=== PATIENT | female | born 1955 | race Caucasian/White ===

== ENCOUNTER → 2018-02-21 12:48 | Outpatient (CLI) | payer SELFPAY | PROVIDERS: Family Provider Internal Medicine; PCP Internal Medicine; Referring Provider Surgery; Visit Provider Surgery | DX: Z53.9 Procedure and treatment not carried out, unspecified reason (principal) ==

== ENCOUNTER → 2018-12-03 09:31 | Outpatient (CLI) | payer OTHER, SELFPAY ==
--- NOTE | 2018-12-03 10:10 | RAD_ITS ---
PROCEDURE: FLUOROSCOPIC GUIDED HIP INJECTION DATE: 12/03/2018 CLINICAL INDICATION: Pain in right hip. PHYSICIAN: Dr. Hollis Forde M.D. MEDICATIONS: 80 mg of Kenalog, 3 cc marcaine 2.5%, and 2 cc of 2% lidocaine administered intra-articularly, with a small amount of 2% lidocaine administered subcutaneously for local anesthesia for right hip approach. ACCESS SITE: Right hip. NEEDLE: 22-gauge spinal needle. FLUOROSCOPY TIME (if supplied): (0:11) minutes/seconds FINDINGS: The risks, benefits, and alternatives to the procedure were explained to the patient. The specific risks of bleeding, infection, and neurovascular injury were detailed and accepted. Witnessed informed consent was obtained. The needle was positioned under direct fluoroscopic observation. Approximately 0.5 cc of Omnipaque 300 instilled for localization purposes, to confirm intra-articular placement of the needle tip. Medication was then injected. The patient tolerated the procedure very well without any immediate complications. RAD/Inj/Asp Lucio Jt Should/Hip/Knee IMPRESSION: 1. Successful fluoroscopic guided right hip injection for pain control. Electronically Signed: Hollis Forde MD at 14:34 EDT Tel [phone], Service support ,
== END ==
PROVIDERS: Family Provider Internal Medicine; PCP Internal Medicine; Referring Provider Orthopaedic Surgery; Visit Provider Orthopaedic Surgery
DX: M16.11 Unilateral primary osteoarthritis, right hip (principal); M25.551 Pain in right hip; G89.29 Other chronic pain
CPT/HCPCS: 20610; 77002; Q9967

== ENCOUNTER 2022-04-26 18:45 | Emergency (ER) | payer MEDICARE, SELFPAY ==
[2022-04-26 18:46] VITALS: BP 163/99; PULSE 69; RESP 15; TEMP 36.8; O2SAT 98; BMI 36.3
--- NOTE | 2022-04-26 19:12 | EDS_ITS ---
HPI History of Present Illness Chief Complaint: Nosebleed Narrative Narrative: Patient presents with right-sided epistaxis that started just prior to arrival. It was quite brisk. She is not anticoagulated. She has no other symptoms. She does not feel lightheaded. [facility] Medical History Arthritis Hypertension Home Medications budesonide-formoterol HFA 80 mcg-4.5 mcg/actuation aerosol inhaler (Symbicort) 2 puff inhalation BID PRN Allergies 01/30/18 [History Last Taken Unknown] estradiol 0.5 mg tablet 1 mg PO QODAY 01/30/18 [History Last Taken Unknown] hydrocodone-acetaminophen 5-325mg 5mg-325mg ([place]) 1 ea PO Q4H PRN Pain 01/30/18 [History Last Taken Unknown] levothyroxine 125 mcg tablet 125 mcg PO DAILY 01/30/18 [History Last Taken Unknown] losartan 50 mg tablet (Cozaar) 50 mg PO DAILY 01/30/18 [History Last Taken Unknown] omeprazole 20 mg capsule,delayed release 20 mg PO DAILY 01/30/18 [History Last Taken Unknown] sertraline 50 mg tablet (Zoloft) 50 mg PO DAILY 01/30/18 [History Last Taken Unknown] clindamycin HCl 150 mg capsule 150 mg PO TID #15 caps 04/26/22 [Rx Last Taken Un known] Allergy/AdvReac Type Severity Reaction Status Date / Time latex Allergy Rash Verified 04/26/22 18:56 codeine AdvReac Nausea Verified 04/26/22 18:56 Surgical History History of appendectomy History of hip replacement Hx of cholecystectomy Hx of total hysterectomy Social History Smoking Status: Never smoker ROS ROS ED ROS Narrative Past medical history: Reviewed Medications: Reviewed, she is not anticoagulated. Social history: Noncontributory Review of systems: All systems negative except as indicated General: No fever Eyes: No visual changes ENT: Epistaxis as in HPI Neck: No neck pain Cardiovascular: No palpitations Psych: No recent behavioral changes Hematologic: No easy bleeding or easy bruising EXAM Physical Exam Narrative Exam Narrative: Physical exam General: Well nourished, Well developed, No Acute Distress Head: Normocephalic, Atraumatic Eyes: Conjunctiva not pale ENT: Right anterior epistaxis that is quite brisk. Neck: Supple, Nontender, No lymphadenopathy Cardiovascular: Regular rate, Regular rhythm Skin: Normal color, No rash Neuro: No facial droop Const Vital Signs: 04/26/22 18:46 Temperature 98.2 F Temperature Source Temporal Pulse Rate 69 Respiratory Rate 15 Blood Pressure 163/99 H Blood Pressure Mean 120 Pulse Ox 98 Oxygen Delivery Method Room Air MDM MDM MDM Narrative Medical decision making narrative: Patient has right-sided epistaxis. She was packed and she appeared well. I thought about coagulation profile labs however I discussed with her she is not anticoagulated, she has no prior bleeding diathesis and she does not bleed easily. Otherwise she can follow-up with ear nose and throat. I will start her on antibiotics to prevent infection. Procedures Other Procedures Procedure(s): Epistaxis management Verbal consent obtained. I did try to use a silver nitrate to cauterize however the bleeding continued and it was quite brisk. It was clear at that time that the patient will need nasal packing. I used a Rhino Rocket and inflated balloon about 6 mL. Hemostasis was achieved. Patient tolerated procedure well. Discharge Plan Triage Chief Complaint: Nosebleed ED Provider: Carlo Childress Dx/Rx/DC Orders Clinical Impression: Epistaxis, Nasal pain Instructions: ED Epistaxis (Adult) Prescriptions: New clindamycin HCl 150 mg capsule 150 mg PO TID Qty: 15 0RF No Action losartan [Cozaar] 50 MG tablet 50 mg PO DAILY hydrocodone-acetaminophen [[place]] 1 EACH tablet 1 ea PO Q4H PRN (Reason: Pain) levothyroxine 125 MCG tablet 125 mcg PO DAILY omeprazole 20 MG capsule 20 mg PO DAILY estradiol 0.5 MG tablet 1 mg PO QODAY sertraline [Zoloft] 50 MG tablet 50 mg PO DAILY budesonide-formoterol [Symbicort] 1 INHALER inhaler 2 puff inhalation BID PRN (Reason: Allergies) Primary Care Provider: Sayda Maxwell Referrals: Adán Macedo MD [Med Staff - Active Staff] - 3-5 Days Sayda Maxwell MD [Primary Care Provider] - Disposition Disposition: Home, Self Care
[2022-04-26 19:22] VITALS: RESP 18
[2022-04-26] MEDS: Silver Nitrate (BKC) 1 EACH TOPICAL (19:24)
== END 2022-04-26 19:31 | disposition home or self-care (01) ==
LOC: ED 19:19
PROVIDERS: Emergency Provider Emergency Medicine; PCP Internal Medicine; Visit Provider Emergency Medicine
DX: R04.0 Epistaxis (principal); I10 Essential (primary) hypertension
CPT/HCPCS: 30901; 99282

== ENCOUNTER 2022-04-27 07:22 | Emergency (ER) | payer MEDICARE, SELFPAY ==
[2022-04-27 07:23] VITALS: BP 176/92; PULSE 90; RESP 17; TEMP 35.9; O2SAT 97; BMI 36.8
--- NOTE | 2022-04-27 08:20 | EDS_ITS ---
HPI History of Present Illness Chief Complaint: Nosebleed Informant: patient Onset/Context/Timing Onset: Yesterday Context: Sudden Onset Timing: Continuous Quality: Dark blood Location: Left nares Worsened by: Nothing Relieved by: Nothing Narrative Narrative: Presents with epistaxis that began yesterday. Patient was seen here at that time. Patient had her right nares packed with a rapid Rhino. Patient states that this morning she woke up with and she was having bleeding from her left nares. Patient states it was dark blood. Patient states nothing makes it better nothing makes it worse. Patient admits to some bilateral ear pain as well. Patient also admits to a headache. Patient denies any history of bleeding disorders. Patient is not on any anticoagulants. [facility] Medical History Arthritis Hypertension Home Medications budesonide-formoterol HFA 80 mcg-4.5 mcg/actuation aerosol inhaler (Symbicort) 2 puff inhalation BID PRN Allergies 01/30/18 [History Last Taken Unknown] estradiol 0.5 mg tablet 1 mg PO QODAY 01/30/18 [History Last Taken Unknown] hydrocodone-acetaminophen 5-325mg 5mg-325mg ([place]) 1 ea PO Q4H PRN Pain 01/30/18 [History Last Taken Unknown] levothyroxine 125 mcg tablet 125 mcg PO DAILY 01/30/18 [History Last Taken Unknown] losartan 50 mg tablet (Cozaar) 50 mg PO DAILY 01/30/18 [History Last Taken Unknown] omeprazole 20 mg capsule,delayed release 20 mg PO DAILY 01/30/18 [History Last Taken Unknown] sertraline 50 mg tablet (Zoloft) 50 mg PO DAILY 01/30/18 [History Last Taken Unknown] clindamycin HCl 150 mg capsule 150 mg PO TID #15 caps 04/26/22 [Rx Last Taken Unknown] Allergy/AdvReac Type Severity Reaction Status Date / Time latex Allergy Rash Verified 04/27/22 07:23 codeine AdvReac Nausea Verified 04/27/22 07:23 Surgical History History of appendectomy History of hip replacement Hx of cholecystectomy Hx of total hysterectomy Social History Smoking Status: Never smoker ROS ROS ED Constitutional Constitutional ED: Denies chills or fever(s) Eyes Eyes: Reports blurry vision; Denies change in vision ENT ENT ED: Reports ear pain bilateral; Denies rhinorrhea or sore throat Cardiovascular Cardiovascular: Denies chest pain or palpitations Respiratory/Chest Respiratory/Chest: Denies cough or dyspnea Gastrointestinal Gastrointestinal: Denies nausea or vomiting Genitourinary Genitourinary ED: Denies dysuria or hematuria Musculoskeletal Musculoskeletal: Reports back pain; Denies neck pain Integumentary Denies abscess or rash Neurologic Neurologic: Reports headache(s); Denies weakness Allergic/Immunologic Allergic/Immunologic ED: Denies mouth swelling or urticaria EXAM Physical Exam Const Vital Signs: 04/27/22 07:23 Temperature 96.6 F L Temperature Source Temporal Pulse Rate 90 Respiratory Rate 17 Blood Pressure 176/92 H Blood Pressure Mean 120 Pulse Ox 97 Oxygen Delivery Method Room Air Positive well nourished, well developed and obese General Appearance ED: well developed and NAD Nutritional Appearance: obese HEENT Reports moist mucous membranes HEENT Narrative: There is nasal packing in the right nares. There is a clot in the left nares. There is some mild active bleeding around the clot. There is some mild bleeding in the posterior pharynx. Neck supple and no JVD Neuro oriented x3, CN's II-XII intact bilaterally and no sensory deficits noted Sensorium / Orientation: alert Motor Exam: strength 5/5 throughout Psych mental status grossly normal MDM MDM MDM Narrative Medical decision making narrative: The packing from the right nares was removed. There is brisk bleeding noted from the right nares. Sheila mixture was placed on cotton balls and was inserted into the nares bilaterally. There is only mild bleeding from the left nares. Rapid Rhino packing was applied to both nares. The balloons were inflated with approximately 5 cc of air on each side. Bleeding seemed to subside. CBC was obtained and was reviewed. Hemoglobin is stable at 13.5 and hematocrit is 42.6. Platelets are normal. PT with INR was obtained and was reviewed. These are within normal limits. PTT was within normal limits. Comprehensive metabolic profile was obtained and was reviewed. Glucose is mildly elevated at 151. Electrolytes are within normal limits. Anion gap is normal. Patient is resting comfortably on reevaluation. Patient is only having minor oozing on reevaluation. Patient feels comfortable going home. Patient was instructed to continue the antibiotics that were prescribed for her yesterday. Patient was instructed to follow-up with ENT in 2 to 3 days. Patient was instructed return if worse in any way. Patient understood and was agreeable with the plan. All questions were answered. Lab Data Attestation: I reviewed the patient's lab results. Labs: Laboratory Results - last 24 hr 04/27/22 04/27/22 04/27/22 08:55 08:55 08:55 WBC 6.8 RBC 4.64 Hgb 13.5 Hct 42.6 MCV 91.8 MCH 29.1 MCHC 31.7 L RDW Std Deviation 43.5 RDW Coeff of Wali 12.9 Plt Count 264 MPV 9.3 Immature Gran % (Auto) 0.300 Neut % (Auto) 70.1 H Lymph % (Auto) 22.8 Mcclain % (Auto) 4.2 Eos % (Auto) 2.0 Baso % (Auto) 0.6 Absolute Neuts (auto) 4.8 Absolute Lymphs (auto) 1.56 Nucleated RBC % 0 PT 13.0 INR 1.0 APTT 27.8 Sodium 140 Potassium 3.8 Chloride 108 H Carbon Dioxide 27.0 Anion Gap 5 BUN 17 Creatinine 0.69 Estim Creat Clear Calc 46.50 Est GFR (MDRD) Af Amer 109 Est GFR (MDRD) Non-Af 90 BUN/Creatinine Ratio 24.7 H Glucose 151 H Calcium 8.4 L Total Bilirubin 0.60 AST 14 L ALT 19 Alkaline Phosphatase 47 Total Protein 6.9 Albumin 3.2 Globulin 3.7 Albumin/Globulin Ratio 0.9 Discharge Plan Triage Chief Complaint: Nosebleed ED Provider: Boston Armendariz Dx/Rx/DC Orders Clinical Impression: Epistaxis, Nasal pain Instructions: ED Epistaxis (Adult) Prescriptions: No Action losartan [Cozaar] 50 MG tablet 50 mg PO DAILY hydrocodone-acetaminophen [[place]] 1 EACH tablet 1 ea PO Q4H PRN (Reason: Pain) levothyroxine 125 MCG tablet 125 mcg PO DAILY omeprazole 20 MG capsule 20 mg PO DAILY estradiol 0.5 MG tablet 1 mg PO QODAY sertraline [Zoloft] 50 MG tablet 50 mg PO DAILY budesonide-formoterol [Symbicort] 1 INHALER inhaler 2 puff inhalation BID PRN (Reason: Allergies) clindamycin HCl 150 mg capsule 150 mg PO TID Qty: 15 0RF Primary Care Provider: Sayda Maxwell Referrals: Adán Macedo MD [Med Staff - Active Staff] - 2 Days Sayda Maxwell MD [Primary Care Provider] - 3-5 Days Disposition Disposition: Home, Self Care
[2022-04-27 09:05] LABS: Absolute Lymphocyte Count 1.56 X10^3/uL (0.83-4.51); Absolute Neutrophil Count 4.8 X10^3/uL (2.0-7.7); Basophil# 0.04 X10^3/uL; Basophil% 0.6 % (0-1); Eosinophil# 0.14 X10^3/uL; Hematocrit 42.6 % (37-47); Hemoglobin 13.5 g/dL (12.0-15.0); Lymphocyte # 1.56 X10^3/ul (0.83-4.51); Lymphocyte % 22.8 % (19-41); Mean Corp Hgb Conc 31.7 g/dL (32-36); Mean Corpuscular Hgb 29.1 pg (27.0-32.0); Mean Corpuscular Volume 91.8 fL (81-99); Mean Platelet Vol. 9.3 fl (6.2-12.0); Monocyte# 0.29 X10^3/uL; Monocyte% 4.2 % (0-10); NRBC Flagged by Analyzer 0 % (0-5); Neutrophil # 4.79 X10^3/uL (2.7-7.7); Neutrophil % 70.1 % (47-70); Platelet Count 264 K/mm3 (150-450); RBC Distribution Width CV 12.9 % (11.6-14.6); RBC Distribution Width SD 43.5 fl (35.1-43.9); Red Blood Count 4.64 M/mm3 (4.2-5.4); White Blood Count 6.8 K/mm3 (4.4-11.0)
[2022-04-27 09:17] LABS: Partial Thromboplast Time 27.8 Seconds (24.1-36.2)
[2022-04-27 09:21] LABS: ALB/GLOB Ratio 0.9 RATIO (0.9-2.4); AST(SGOT) 14 U/L (15-37); Alanine Aminotransfer ALT/SGPT 19 U/L (13-56); Albumin, Serum 3.2 g/dL (3.2-5.0); Alkaline Phosphatase 47 U/L (45-117); Anion Gap 5 (5-15); BUN 17 mg/dL (7-18); BUN/Creat Ratio 24.7 RATIO (10-20); Calcium,Total 8.4 mg/dL (8.5-10.1); Chloride 108 mmol/L (98-107); Creatinine, Serum 0.69 mg/dL (0.55-1.02); EST Glomerular Filtration Rate 90 mL/min (>60); Est Glom Filt Rate - Afr Amer 109 mL/min (>60); Globulin 3.7 g/dL (2.2-4.2); Glucose 151 mg/dL (74-106); Potassium 3.8 mmol/L (3.5-5.1); Protein, Total 6.9 g/dL (6.4-8.2); Sodium Level 140 mmol/L (136-145)
[2022-04-27] MEDS: Mixture 30 ML Bottle TOPICAL (11:28)
[2022-04-27 11:30] VITALS: PULSE 63; RESP 18; O2SAT 97
== END 2022-04-27 11:33 | disposition home or self-care (01) ==
PROVIDERS: Emergency Provider Emergency Medicine; PCP Internal Medicine; Visit Provider Emergency Medicine
DX: R04.0 Epistaxis (principal); H92.03 Otalgia, bilateral; R51.9 Headache, unspecified; E66.9 Obesity, unspecified
CPT/HCPCS: 30905; 80053; 85025; 85610; 85730; 99283; A4216

== ENCOUNTER 2022-04-28 21:39 | Emergency (ER) | payer MEDICARE, SELFPAY ==
[2022-04-28 21:40] VITALS: BP 139/73; PULSE 108; RESP 18; TEMP 36.2; O2SAT 95; BMI 36.0
--- NOTE | 2022-04-28 23:06 | EX.ED.DYSGE1 ---
HPI History of Present Illness Chief Complaint: Nosebleed Narrative Narrative: Patient is a 66-year-old female with past medical history of hypertension and depression. She was seen the other day secondary to nosebleed and at that time had bilateral rapid Rhino was placed. Blood work was also obtained. She states she was doing well but this evening had a sudden onset breakthrough bleeding despite the packing being present. She denies any history of bleeding disorder or blood thinner use and she denies any trauma since returning home. She states she is doing better at this time but with the episode occurring she presents for reevaluation [facility] Medical History Arthritis Hypertension Home Medications budesonide-formoterol HFA 80 mcg-4.5 mcg/actuation aerosol inhaler (Symbicort) 2 puff inhalation BID PRN Allergies 01/30/18 [History Last Taken Unknown] estradiol 0.5 mg tablet 1 mg PO QODAY 01/30/18 [History Last Taken Unknown] hydrocodone-acetaminophen 5-325mg 5mg-325mg ([place]) 1 ea PO Q4H PRN Pain 01/30/18 [History Last Taken Unknown] levothyroxine 125 mcg tablet 125 mcg PO DAILY 01/30/18 [History Last Taken Unknown] losartan 50 mg tablet (Cozaar) 50 mg PO DAILY 01/30/18 [History Last Taken Unknown] omeprazole 20 mg capsule,delayed release 20 mg PO DAILY 01/30/18 [History Last Taken Unknown] sertraline 50 mg tablet (Zoloft) 50 mg PO DAILY 01/30/18 [History Last Taken Unknown] clindamycin HCl 150 mg capsule 150 mg PO TID #15 caps 04/26/22 [Rx Last Taken Unknown] Allergy/AdvReac Type Severity Reaction Status Date / Time latex Allergy Rash Verified 04/28/22 21:40 codeine AdvReac Nausea Verified 04/28/22 21:40 Surgical History History of appendectomy History of hip replacement Hx of cholecystectomy Hx of total hysterectomy Social History Smoking Status: Never smoker ROS ROS ED Constitutional Constitutional ED: Denies chills or fever(s) Eyes Eyes: Denies change in vision ENT ENT ED: Reports other Details: Positive nasal pain and nasal bleeding ; Denies sore throat Cardiovascular Cardiovascular: Denies chest pain Respiratory/Chest Respiratory/Chest: Denies cough or dyspnea Gastrointestinal Gastrointestinal: Denies abdominal pain, diarrhea, nausea or vomiting Genitourinary Genitourinary ED: Denies dysuria Musculoskeletal Musculoskeletal: Denies myalgias Integumentary Denies rash Neurologic Neurologic: Reports headache(s) Hematologic/Lymphatic Hematologic/Lymphatic: Denies easy bleeding or easy bruising EXAM Physical Exam Const Vital Signs: 04/28/22 21:40 Temperature 97.1 F L Temperature Source Temporal Pulse Rate 108 H Respiratory Rate 18 Blood Pressure 139/73 H Blood Pressure Mean 95 Pulse Ox 95 Oxygen Delivery Method Room Air Positive well nourished and well developed General Appearance ED: well developed HEENT HEENT Narrative: Patient has bilateral rapid Rhino is in place. There is no active bleeding from around the packing site. There is no dried blood or active bleeding noted in the posterior pharynx. Eyes PERRL and EOMs intact bilaterally Neck supple Resp normal respiratory effort and clear to auscultation bilaterally Cardio regular rate and regular rhythm Extremity normal to inspection Neuro oriented x3 and CN's II-XII intact bilaterally Sensorium / Orientation: alert Psych mental status grossly normal Skin no rashes or lesions noted MDM MDM MDM Narrative Medical decision making narrative: Patient presented to the ER with stable vitals and spontaneous resolution of the reported bleeding at home. At this time there is no bleeding from either nasal site and there is no blood in the posterior pharynx. Therefore do not feel is appropriate to remove the nasal packing. The patient had blood work done just yesterday and she is normal blood volume and platelet count and bleeding times I do not feel there is need to repeat this as well. Patient was watched in the ER for approximately 1 hour and there was no return of bleeding and therefore at this time she is safe for discharge and can follow-up with ENT as previously directed on Saturday. Discharge Plan Triage Chief Complaint: Nosebleed ED Provider: Keith Mujica Dx/Rx/DC Orders Clinical Impression: Epistaxis, Hypertension Instructions: ED Epistaxis (Adult) Prescriptions: No Action losartan [Cozaar] 50 MG tablet 50 mg PO DAILY hydrocodone-acetaminophen [[place]] 1 EACH tablet 1 ea PO Q4H PRN (Reason: Pain) levothyroxine 125 MCG tablet 125 mcg PO DAILY omeprazole 20 MG capsule 20 mg PO DAILY estradiol 0.5 MG tablet 1 mg PO QODAY sertraline [Zoloft] 50 MG tablet 50 mg PO DAILY budesonide-formoterol [Symbicort] 1 INHALER inhaler 2 puff inhalation BID PRN (Reason: Allergies) clindamycin HCl 150 mg capsule 150 mg PO TID Qty: 15 0RF Primary Care Provider: Sayda Maxwell Referrals: Corky Maecdo MD [Med Staff - Courtesy Staff] - Sayda Maxwell MD [Primary Care Provider] - Activity Restrictions/Additional Instructions: Please follow-up with ENT for repeat evaluation. If your nose begins to bleed again hold pressure for 10 to 20 minutes and if bleeding stops then you may stay at home but if it persists or you have further concerns return to the ER for repeat evaluation Disposition Disposition: Home, Self Care Discharge Date/Time: 04/28/22 23:16
== END 2022-04-28 23:16 | disposition home or self-care (01) ==
PROVIDERS: Emergency Provider Emergency Medicine; PCP Internal Medicine; Visit Provider Emergency Medicine
DX: R04.0 Epistaxis (principal); I10 Essential (primary) hypertension; F32.A Depression, unspecified; R51.9 Headache, unspecified
CPT/HCPCS: 99282

== ENCOUNTER 2022-05-15 09:47 | Emergency (ER) | payer MEDICARE, SELFPAY ==
[2022-05-15 09:48] VITALS: BP 139/69; PULSE 89; RESP 18; TEMP 36; O2SAT 96; BMI 35.2
[2022-05-15 10:01] VITALS: BP 147/102; PULSE 85; RESP 19; O2SAT 98
[2022-05-15 10:06] VITALS: BP 144/70
--- NOTE | 2022-05-15 10:10 | EKG12_ITS ---
Test Reason : HTN Blood Pressure : / mmHG Vent. Rate : 071 BPM Atrial Rate : 071 BPM P-R Int : 174 ms QRS Dur : 104 ms QT Int : 388 ms P-R-T Axes : 018 -09 023 degrees QTc Int : 421 ms Sinus rhythm with marked sinus arrhythmia Otherwise normal ECG Confirmed by ALICIA DETN, KENNETH ([id number]), newspaper copy editor YORDAN GONZALEZ ([id number]) on 05/17/2022 10:18:58 AM Referred By: MARCELINO Confirmed By:KENNETH VARGAS MD
--- NOTE | 2022-05-15 10:10 | CT_ITS ---
STUDY: CT BRAIN WITHOUT CONTRAST REASON FOR EXAM: Female, 66 years old. HTN, headache RADIATION DOSAGE (If Supplied By Facility): CTDIvol = ( 44.99 ) mGy, DLP = ( 829.85 ) mGycm TECHNIQUE: Transaxial CT imaging of the brain was performed without administration of intravenous contrast material. Individualized dose optimization techniques were used for this CT. COMPARISON: No relevant priors. FINDINGS: Normal soft tissue structures. There is hyperostosis frontalis internus. There is mild cerebral atrophy with widening of the extra-axial spaces and ventricular dilatation. Normal white matter tracts of the cerebral hemispheres. Normal basal ganglia and thalami. Normal brainstem. Normal cerebellum. There is no intracranial hemorrhage. There are no findings of an acute ischemic infarction. Mild degree of mucosal thickening of the right maxillary sinus. CT/Brain/Head without Contrast IMPRESSION: Chronic involutional changes of the brain. Electronically Signed: Zach Cedillo MD at 11:21 EST ,
--- NOTE | 2022-05-15 10:11 | EX.ED.DYSGE1 ---
HPI History of Present Illness Chief Complaint: Hypertension Informant: patient Onset/Context/Timing Onset: Weeks Narrative Narrative: Patient present secondary to hypertension with a syncopal episode yesterday. Patient has been seen multiple times recently with nosebleeds. She states there was concerned that high blood pressure may been causing her nosebleeds. When she spoke with her primary care physician they had her double her losartan from 50 mg to 100 mg daily. She has been having intermittent headaches. Yesterday at work she states she felt like a migraine was coming on. She had trouble with her vision focusing. She then became lightheaded and had a very brief syncopal or near syncopal episode. She denies having palpitations or chest pain prior to this. She states after arriving home from her syncopal episode she checked her blood pressure and it was reading 100/95. By late evening blood pressure had returned to more normal range in the 130s systolic. She woke at 2 AM this morning with a headache and her systolic blood pressure was 200. This morning she did take her Synthroid as well as 50 mg of losartan. After speaking with her primary care office it was advised she come to the emergency room for evaluation. She has a very mild headache at this time. She denies chest pain or palpitations. [facility] Medical History Arthritis Hypertension Home Medications budesonide-formoterol HFA 80 mcg-4.5 mcg/actuation aerosol inhaler (Symbicort) 2 puff inhalation BID PRN Allergies 01/30/18 [History Last Taken Unknown] estradiol 0.5 mg tablet 1 mg PO QODAY 01/30/18 [History Last Taken Unknown] hydrocodone-acetaminophen 5-325mg 5mg-325mg ([place]) 1 ea PO Q4H PRN Pain 01/30/18 [History Last Taken Unknown] levothyroxine 125 mcg tablet 125 mcg PO DAILY 01/30/18 [History Last Taken Unknown] losartan 50 mg tablet (Cozaar) 50 mg PO DAILY 01/30/18 [History Last Taken Unknown] omeprazole 20 mg capsule,delayed release 20 mg PO DAILY 01/30/18 [History Last Taken Unknown] sertraline 50 mg tablet (Zoloft) 50 mg PO DAILY 01/30/18 [History Last Taken Unknown] clindamycin HCl 150 mg capsule 150 mg PO TID #15 caps 04/26/22 [Rx Last Taken Unknown] Allergy/AdvReac Type Severity Reaction Status Date / Time latex Allergy Rash Verified 05/15/22 09:48 codeine AdvReac Nausea Verified 05/15/22 09:48 Surgical History History of appendectomy History of hip replacement Hx of cholecystectomy Hx of total hysterectomy Social History Smoking Status: Never smoker ROS ROS ED Constitutional Constitutional ED: Denies chills or fever(s) Eyes Eyes: Reports blurry vision; Denies change in vision or discharge from eye(s) ENT ENT ED: Denies discharge from eye(s), rhinorrhea or sore throat Cardiovascular Cardiovascular: Denies chest pain or palpitations Respiratory/Chest Respiratory/Chest: Denies cough or dyspnea Gastrointestinal Gastrointestinal: Denies abdominal pain, diarrhea, nausea or vomiting Genitourinary Genitourinary ED: Denies dysuria Musculoskeletal Musculoskeletal: Denies back pain or extremity pain Integumentary Denies Abrasions or rash Neurologic Neurologic: Reports headache(s); Denies weakness Psychiatric Psychiatric: Denies anxiety or depression Endocrine Endocrinology: Denies polydipsia or polyuria Allergic/Immunologic Allergic/Immunologic ED: Denies lip swelling or urticaria EXAM Physical Exam Const Vital Signs: 05/15/22 09:48 05/15/22 10:01 05/15/22 10:02 Temperature 96.8 F L Temperature Source Temporal Pulse Rate 89 85 Respiratory Rate 18 19 H Respiratory Effort Normal Non-Labored Respiratory Pattern Normal Blood Pressure 139/69 H 147/102 H Blood Pressure Mean 92 117 Pulse Ox 96 98 Oxygen Delivery Method Room Air Room Air 05/15/22 10:06 05/15/22 11:37 Temperature Temperature Source Pulse Rate 76 Respiratory Rate 9 L Respiratory Effort Respiratory Pattern Blood Pressure 144/70 H 145/79 H Blood Pressure Mean 94 101 Pulse Ox 97 Oxygen Delivery Method Room Air Positive well nourished and well developed General Appearance ED: well developed HEENT Reports normocephalic and head/scalp atraumatic Eyes PERRL and EOMs intact bilaterally Neck supple Chest Wall inspection of chest normal and palpation of chest normal Resp normal respiratory effort and clear to auscultation bilaterally Cardio regular rate and regular rhythm GI normal to inspection, nondistended, normoactive bowel sounds Palpation: soft Extremity normal to inspection Neuro oriented x3 and no sensory deficits noted Sensorium / Orientation: alert Motor Exam: strength 5/5 throughout Psych mental status grossly normal Skin no rashes or lesions noted MDM MDM MDM Narrative Medical decision making narrative: Given the patient's headaches and syncopal episode CT scan of the head is obtained. EKG is ordered along with lab work to evaluate for anemia or electrolyte derangement. Lab Data Attestation: I reviewed the patient's lab results. Labs: Laboratory Results - last 24 hr 05/15/22 05/15/22 10:25 10:25 WBC 8.1 RBC 4.55 Hgb 13.4 Hct 41.4 MCV 91.0 MCH 29.5 MCHC 32.4 RDW Std Deviation 45.1 H RDW Coeff of Wali 13.6 Plt Count 312 MPV 8.9 Immature Gran % (Auto) 0.500 Neut % (Auto) 65.9 Lymph % (Auto) 24.1 [place] % (Auto) 6.2 Eos % (Auto) 2.8 Baso % (Auto) 0.5 Absolute Neuts (auto) 5.3 Absolute Lymphs (auto) 1.95 Nucleated RBC % 0 Sodium 141 Potassium 4.2 Chloride 106 Carbon Dioxide 28.0 Anion Gap 7 BUN 23 H Creatinine 0.92 Estim Creat Clear Calc 50.54 Est GFR (MDRD) Af Amer 78 Est GFR (MDRD) Non-Af 64 BUN/Creatinine Ratio 24.9 H Glucose 101 Calcium 9.0 Radiography Chest X-Ray - ED: 1 View, Read by ED Physician, Normal, Heart, Lungs and Mediastinum Diagnostic Testing: Clinical Impression(s) from Imaging Studies Brain CT 05/15/22 10:10 IMPRESSION: Chronic involutional changes of the brain. Electronically Signed: Zach Cedillo MD at 11:21 EST , Chest X-Ray 05/15/22 10:45 IMPRESSION: No acute abnormality is seen. Electronically Signed: Zach Cedillo MD at 11:21 EST , EKG Initial EKG: Attestation: I personally reviewed and interpreted this EKG as follows: Interpretation: Sinus Rhythm (Sinus at 71 with no acute ischemia.) Treatment and Re-Evaluation Narrative: Repeat evaluation patient resting comfortably. Systolic blood pressure has been stable in the 130s to 140s while in the emergency room. EKG is unremarkable with no sign of ischemia. Chest x-ray per my interpretation reveals no acute abnormalities. Radiology interpretation is reviewed. CT scan of the head is unremarkable. Lab work including CBC and chemistry studies are unremarkable. Test results are discussed with the patient at bedside. I encouraged her to only take 50 mg of her losartan daily and check her blood pressure at random times throughout the day and keep a journal so that her physician can monitor this. I also encouraged her to have her blood pressure cuff checked against one at her doctor's office or the hospital to ensure that it is accurate. Return instructions are provided. Discharge Plan Triage Chief Complaint: Hypertension ED Provider: Twyla Mccarty Dx/Rx/DC Orders Clinical Impression: Labile blood pressure, Syncope Instructions: ED High Blood Pressure Hypertension, ED Fainting, Uncertain Cause Prescriptions: No Action losartan [Cozaar] 50 MG tablet 50 mg PO DAILY hydrocodone-acetaminophen [[place]] 1 EACH tablet 1 ea PO Q4H PRN (Reason: Pain) levothyroxine 125 MCG tablet 125 mcg PO DAILY omeprazole 20 MG capsule 20 mg PO DAILY estradiol 0.5 MG tablet 1 mg PO QODAY sertraline [Zoloft] 50 MG tablet 50 mg PO DAILY budesonide-formoterol [Symbicort] 1 INHALER inhaler 2 puff inhalation BID PRN (Reason: Allergies) clindamycin HCl 150 mg capsule 150 mg PO TID Qty: 15 0RF Primary Care Provider: Sayda Maxwell Referrals: Sayda Maxwell MD [Primary Care Provider] - [facility] appointment Disposition Disposition: Home, Self Care
[2022-05-15 10:33] LABS: Absolute Lymphocyte Count 1.95 X10^3/uL (0.83-4.51); Absolute Neutrophil Count 5.3 X10^3/uL (2.0-7.7); Basophil# 0.04 X10^3/uL; Basophil% 0.5 % (0-1); Eosinophil# 0.23 X10^3/uL; Eosinophils% 2.8 % (0-5); Hematocrit 41.4 % (37-47); Hemoglobin 13.4 g/dL (12.0-15.0); Lymphocyte # 1.95 X10^3/ul (0.83-4.51); Lymphocyte % 24.1 % (19-41); Mean Corp Hgb Conc 32.4 g/dL (32-36); Mean Corpuscular Hgb 29.5 pg (27.0-32.0); Mean Platelet Vol. 8.9 fl (6.2-12.0); Monocyte% 6.2 % (0-10); NRBC Flagged by Analyzer 0 % (0-5); Neutrophil # 5.34 X10^3/uL (2.7-7.7); Neutrophil % 65.9 % (47-70); Platelet Count 312 K/mm3 (150-450); RBC Distribution Width CV 13.6 % (11.6-14.6); RBC Distribution Width SD 45.1 fl (35.1-43.9); Red Blood Count 4.55 M/mm3 (4.2-5.4); White Blood Count 8.1 K/mm3 (4.4-11.0)
[2022-05-15 10:42] LABS: Anion Gap 7 (5-15); BUN 23 mg/dL (7-18); BUN/Creat Ratio 24.9 RATIO (10-20); Chloride 106 mmol/L (98-107); Creatinine, Serum 0.92 mg/dL (0.55-1.02); EST Glomerular Filtration Rate 64 mL/min (>60); Est Glom Filt Rate - Afr Amer 78 mL/min (>60); Estimated Creatinine Clearance 50.54 ml/min; Glucose 101 mg/dL (74-106); Potassium 4.2 mmol/L (3.5-5.1); Sodium Level 141 mmol/L (136-145)
--- NOTE | 2022-05-15 10:45 | RAD_ITS ---
STUDY: X-RAY CHEST REASON FOR EXAM: Female, 66 years old. Hypertension. Syncopal episode. TECHNIQUE: Single AP portable view of the chest. COMPARISON: None. FINDINGS: EKG electrodes are seen. The lungs are clear and expanded. There is no demonstrated pleural abnormality. Normal size heart. Normal mediastinum and alden. Normal visualized pulmonary arteries. There is atherosclerotic tortuosity of the aortic arch and descending thoracic aorta. There are diffuse degenerative changes of the visualized thoracic spine. Normal visualized ribs, clavicles, and shoulders. There is no demonstrated abnormality of the visualized soft tissue structures of the upper abdomen. RAD/Chest 1 View (Portable) IMPRESSION: No acute abnormality is seen. Electronically Signed: Zach Cedillo MD at 11:21 EST ,
[2022-05-15 11:37] VITALS: BP 145/79; PULSE 76; RESP 9; O2SAT 97
[2022-05-15 12:13] VITALS: BP 145/72; PULSE 68
== END 2022-05-15 12:16 | disposition home or self-care (01) ==
PROVIDERS: Emergency Provider Emergency Medicine; PCP Internal Medicine; Visit Provider Emergency Medicine
DX: R55 Syncope and collapse (principal); I10 Essential (primary) hypertension; R51.9 Headache, unspecified
CPT/HCPCS: 70450; 71045; 80048; 85025; 93005; 99284; A4216